=== PATIENT | female | born 1990 | race Caucasian/White ===

== ENCOUNTER 2020-03-30 08:58 | Emergency (ER) | payer OTHER ==
[2020-03-30] MEDS ORDERED: ACETAMINOPHEN 325 MG TAB PO ONE (09:45)
[2020-03-30 10:42] LABS: HCG, SERUM QUALITATIVE INDETERM. (NEGATIVE)
[2020-03-30] MEDS ORDERED: MORPHINE 4 MG/ML 1ML VIAL/SYRINGE (J2270) IV ONE (11:15)
--- NOTE | 2020-03-30 11:39 | REP ---
INDICATION: trauma. COMPARISON: None. TECHNIQUE: AP pelvis and two-view right hip FINDINGS: AP pelvis: The lower lumbar vertebral levels, sacrum, SI joints, iliac bones and hips appear symmetric and unremarkable. Pelvic ring intact. Symphysis pubis and pubic rami intact. Right hip hip joint space is preserved there is no fracture, avulsion or focal bone lesion. Acetabulum, pubic rami, symphysis pubis, iliac bone SI joint intact sacral ala and foramina unremarkable. No abnormal soft tissue calcification or visible soft tissue mass. IMPRESSION: 1. There is no visible or displaced fracture, avulsion or abnormal soft tissue calcification identified about the pelvis and right hip. <Electronically signed by Pierre Patel > 03/30/20 [id number]
[2020-03-30] MEDS ORDERED: CYCL-707 PO (12:12)
[2020-03-30 12:20] VITALS: BP 123/67
== END 2020-03-30 12:29 | disposition home or self-care (01) ==
LOC: EDBD 08:58 → M ED 08:58
DX: M62.830 Muscle spasm of back (principal); S73.101A Unspecified sprain of right hip, initial encounter; X58.XXXA Exposure to other specified factors, initial encounter; Y92.9 Unspecified place or not applicable; Y93.9 Activity, unspecified; Y99.9 Unspecified external cause status
CPT/HCPCS: 73502; 84702; 84703; 96374; 99284; J2270

== ENCOUNTER → 2020-05-29 | Outpatient (CLI) | payer OTHER ==
[~2020-05-29] MED LIST: CYCL-707 PO
[2020-05-29 14:35] LABS: HEMATOCRIT 40.2 % (36.0-47.0); HEMOGLOBIN 12.9 g/dl (12.0-15.5); MEAN CORPUSCULAR HEMOGLOBIN 29.1 pg (27.0-33.0); MEAN CORPUSCULAR HGB CONC 32.1 g/dl (32.0-36.5); MEAN CORPUSCULAR VOLUME 90.5 fl (80.0-96.0); PLATELET COUNT, AUTOMATED 331 10^3/uL (150-450); RED BLOOD COUNT 4.44 10^6/uL (4.00-5.40); WHITE BLOOD COUNT 11.9 10^3/uL (4.0-10.0)
[2020-05-29 15:12] LABS: ALT/SGPT 15 U/L (12-78); BILIRUBIN,TOTAL 0.3 MG/DL (0.2-1.0); CREATININE FOR GFR 0.54 MG/DL (0.55-1.30); GLOMERULAR FILTRATION RATE > 60.0 (>60); LDH LACTATE DEHYDROGENASE 148 U/L (84-246); URIC ACID 2.9 MG/DL (2.6-6.0)
[2020-05-29 15:16] LABS: CREATININE,RANDOM URINE 76.2 MG/DL; TOTAL PROTEIN,RANDOM URINE 14.3 MG/DL (0.0-12.0)
[2020-05-29 15:53] LABS: HEPATITIS C VIRUS ABY INDEX < 0.0 INDEX (<0.8); HIV 1&2 SCREEN CENTAUR NEGATIVE (NEGATIVE)
[2020-05-29 16:09] LABS: CHLAMYDIA DNA AMPLIFICATION NEGATIVE (NEGATIVE); GC DNA AMPLIFICATION NEGATIVE (NEGATIVE)
== END ==
LOC: M LAB 13:19
PROVIDERS: ATTEND Advanced Practice Midwife
DX: O34.211 Maternal care for low transverse scar from previous cesarean delivery (principal); Z3A.00 Weeks of gestation of pregnancy not specified

== ENCOUNTER → 2020-05-31 | Outpatient (REF) | payer OTHER | LOC: M PLALAB 11:25 | PROVIDERS: ATTEND Advanced Practice Midwife | DX: Z3A.12 12 weeks gestation of pregnancy (principal) | CPT/HCPCS: 36415; 86850; 86900; 86901; G0463 ==

== ENCOUNTER → 2020-07-14 | Outpatient (CLI) | payer OTHER ==
--- NOTE | 2020-07-14 14:41 | REP ---
INDICATION: ANATOMY. COMPARISON: None. TECHNIQUE: Transabdominal obstetric sonography. FINDINGS: Scanning through the gravid uterus demonstrates a viable single intrauterine gestation in variable lie. motion is observed and heart rate is recorded at 146 beats per minute. A posterior placenta is seen, grade 1, without evidence of placenta previa. Closed cervical length is measured at 3.1 cm transabdominally. No extrauterine abnormality is observed. Amniotic fluid is subjectively normal. No anomaly is seen. The following anatomic structures are identified and felt to be sonographically unremarkable: cranium, choroid plexus, cavum, cerebellum and posterior fossa, face and profile, lungs, four-chamber heart with left and right ventricular outflow tract views, diaphragm, left-sided stomach, abdominal wall cord insertion, three-vessel umbilical cord, kidneys and bladder, spine, and upper and lower extremities. Biometry chart: BPD 4.6 cm, 20 weeks 0 days Head circumference 16.8 cm, 19 weeks 3 days Abdominal circumference 13.7 cm, 19 weeks 1 day Femur length 3.0 cm, 19 weeks 1 day Humeral length 2.8 cm, 19 weeks 1 day HC AC ratio normal 1.22 Cephalic index normal 0.78 Estimated weight 280 g, 0 lb 9 oz, 75th percentile for 18 weeks 5 days IMPRESSION: Viable single intrauterine gestation at 19 weeks 3 days by today's composite sonographic criteria. ELLIE by today's sonography December 05, 2020. No complication identified. Expected gestational age estimate based on established ELLIE December 10, 2020 is 18 weeks 5 days. <Electronically signed by Salvador Meléndez > 07/14/20 0022
== END ==
LOC: M WHC 11:33
PROVIDERS: ATTEND Advanced Practice Midwife
DX: Z34.92 Encounter for supervision of normal pregnancy, unspecified, second trimester (principal); Z3A.19 19 weeks gestation of pregnancy

== ENCOUNTER → 2020-09-18 | Outpatient (REF) | payer OTHER | LOC: M PLALAB 08:58 | PROVIDERS: ATTEND Advanced Practice Midwife | DX: O34.219 Maternal care for unspecified type scar from previous cesarean delivery (principal) ==

== ENCOUNTER → 2020-10-05 | Outpatient (REF) | payer OTHER ==
[2020-10-05 18:01] LABS: HEMOGLOBIN A1c 5.2 %
== END ==
LOC: M PLALAB 14:55
PROVIDERS: ATTEND Advanced Practice Midwife
DX: O24.419 Gestational diabetes mellitus in pregnancy, unspecified control (principal)
CPT/HCPCS: 36415; 59025; 83036; G0463

== ENCOUNTER → 2020-10-23 | Outpatient (CLI) | payer OTHER ==
--- NOTE | 2020-10-23 11:37 | REP ---
INDICATION: O24.419 GESTATIONAL DIABETES,GROWTH COMPARISON: 07/14/2020 TECHNIQUE: Transabdominal obstetrical ultrasound with color Doppler evaluation. FINDINGS: Examination demonstrates a single live intrauterine in breech presentation. motion is identified by technologist. Placenta is noted posterior and grade 2 without evidence for placenta previa or abruption. Amniotic fluid volume is normal. Cervix measures 3.0 cm in length and appears closed.. Selected gestational age: 33 weeks 1 day with ELLIE 12/10/2020. Gestational age by current measurements 34 weeks 0 days with ELLIE 12/04/2020. FHR equals 140 beats per minute. BPD: 8.5 cm at 34 weeks 1 day HC: 31.2 cm at 34 weeks 6 days AC: 29.6 cm at 33 weeks 4 days FL: 6.5 cm at 33 weeks 4 days HL: 5.8 cm at 33 weeks 5 days HC/AC: 1.05 Estimated weight 2272 grams (61stpercentile). KEO: 13.5 cm Umbilical artery SD ratio: 2.56 (1.78-3.76) IMPRESSION: Single live intrauterine in breech presentation demonstrating appropriate interval growth. <Electronically signed by Jim Paul > 10/23/20 [id number]
== END ==
LOC: M WHC 10:04
PROVIDERS: ATTEND Advanced Practice Midwife
DX: O24.419 Gestational diabetes mellitus in pregnancy, unspecified control (principal); Z3A.33 33 weeks gestation of pregnancy; O32.1XX0 Maternal care for breech presentation, not applicable or unspecified

== ENCOUNTER 2020-10-26 01:01 | Outpatient (CLI) | payer OTHER ==
[~2020-10-26] VITALS: Ht 152.4 cm; Wt 92.0 kg
[2020-10-26 01:26] VITALS: BP 100/58
[2020-10-26] MEDS ORDERED: PRENTAB9 PO (01:49)
[2020-10-26] MEDS ORDERED: ASPI81CH33 PO (01:50)
[2020-10-26 02:40] LABS: APPEARANCE, URINE HAZY (CLEAR); BACTERIA, URINE AUTO 1+ (NEGATIVE); BILIRUBIN, URINE AUTO NEGATIVE (NEGATIVE); BLOOD, URINE BLOOD NEGATIVE (NEGATIVE); COLOR, URINE YELLOW (YELLOW); GLUCOSE, URINE (UA) AUTO 3+ mg/dL (NEGATIVE); KETONE, URINE AUTO TRACE mg/dL (NEGATIVE); LEUKOCYTE ESTERASE, URINE AUTO TRACE (NEGATIVE); MUCUS, URINE MODERATE (NEGATIVE); NITRITE, URINE AUTO NEGATIVE (NEGATIVE); PROTEIN, URINE AUTO 1+ mg/dL (NEGATIVE); RBC, URINE AUTO 1 /HPF (0-3); SPECIFIC GRAVITY URINE AUTO 1.022 (1.002-1.035); SQUAMOUS EPITHELIAL CELL UR AU 3 /HPF (0-6); WBC, URINE AUTO 4 /HPF (0-3)
[2020-10-26 02:49] LABS: HEMATOCRIT 33.4 % (36.0-47.0); HEMOGLOBIN 10.4 g/dl (12.0-15.5); MEAN CORPUSCULAR HEMOGLOBIN 24.8 pg (27.0-33.0); MEAN CORPUSCULAR HGB CONC 31.1 g/dl (32.0-36.5); MEAN CORPUSCULAR VOLUME 79.7 fl (80.0-96.0); PLATELET COUNT, AUTOMATED 412 10^3/uL (150-450); RED BLOOD COUNT 4.19 10^6/uL (4.00-5.40); WHITE BLOOD COUNT 11.8 10^3/uL (4.0-10.0)
[2020-10-26 03:14] LABS: ALBUMIN 2.6 GM/DL (3.2-5.2); ALT/SGPT 13 U/L (12-78); BILIRUBIN,TOTAL 0.3 MG/DL (0.2-1.0); BLOOD UREA NITROGEN 8 MG/DL (7-18); CALCIUM LEVEL 8.4 MG/DL (8.5-10.1); CARBON DIOXIDE LEVEL 20 MEQ/L (21-32); CHLORIDE LEVEL 107 MEQ/L (98-107); CREATININE FOR GFR 0.41 MG/DL (0.55-1.30); GLOMERULAR FILTRATION RATE > 60.0 (>60); GLUCOSE, FASTING 108 MG/DL (70-100); POTASSIUM SERUM 3.9 MEQ/L (3.5-5.1); SODIUM LEVEL 138 MEQ/L (136-145); TOTAL PROTEIN 6.5 GM/DL (6.4-8.2)
--- NOTE | 2020-10-26 07:23 | IPN ---
PROGRESS NOTE DATE: 10/26/2020 SUBJECTIVE: Zina is a 30-year-old , para 1-2-0-3, at 33 and 4/7 weeks gestation with estimated date of confinement (EDC) of 12/10/2020 based on first trimester ultrasound. She presents to labor and delivery to day with report of feeling dizzy and headache with a fingerstick glucose at home around midnight of 406. She denies contractions, vaginal bleeding and leakage of fluid. The fetus has been active. [facility] and [facility] care in the first trimester. course complicated by A2 gestational diabetes, prior section and a history of preeclampsia and prior pregnancies. OBSTETRIC HISTORY: 04/2011, 35 weeks and 3 days, 4 pound male, vaginal delivery following an induction for preeclampsia. December 2017, 37 weeks, 7 pounds, 8 ounce male following an emergency section due to non-reassuring heart rate. October 2018, 35 week gestation, twin gestation, section, male-male with demise of baby A at 28 weeks of unknown reasons. OBSTETRIC LABORATORY: O positive, antibody screen negative. Syphilis nonreactive. Gonorrhea and chlamydia negative. Hepatitis B surface antigen negative. Hepatitis C antibody nonreactive. HIV negative and rubella immune. She was unable to tolerate the one hour glucose screening, so fingerstick testing was employed and she was noted to have severely elevated glucose values, both fasting and postprandial. So diagnosis of gestational diabetes was made. She did have attempt management with diet and metformin and failed severely. PAST MEDICAL HISTORY: 1. Preeclampsia. 2. Gestational diabetes. SURGERIES: section times 2. FAMILY HISTORY: Hypertension. SOCIAL HISTORY: The patient is , stay at home mother. She is nonsmoker. Denies alcohol and drug use. Denies history of sexually transmitted infections and denies history of abuse, physical, sexual and emotional. ALLERGIES: No known drug allergies. CURRENT MEDICATIONS: Includes vitamins, aspirin 81 mg daily, every a.m. 38 units of NPH and 20 units of regular. Every p.m. 16 units of NPH and 16 units of regular. OBJECTIVE: Temperature 97.8, pulse 118, respirations 18, blood pressure is 100/58. She is alert and oriented x3. She does not appear uncomfortable. heart rate is 135 and moderate variability. Positive accelerations, negative decelerations. There is no pattern of contractions. Vaginal examination is deferred. Skin is warm, pink and dry. Her urinalysis demonstrates a specific gravity of 1.022, 3+ glucose and trace ketones. Her comprehensive metabolic panel (CMP) with a glucose of 108. Fingerstick blood sugar at bedside was 133 upon arrival. Her BUN is 8. Glomerular filtration rate (GFR) I greater than 60. Potassium is 3.9. Liver enzymes are normal. Complete blood count (CBC) with a hemoglobin of 10.4, hematocrit 33.4 and platelets of 412. ASSESSMENT: Intrauterine at 33 and 47 weeks. heart category 1. A2 gestational diabetes, stable at this time. PLAN: Discharge the patient to home. We did have a long discussion regarding dietary intake and management of her gestational diabetes. Options for dietary choices were reviewed with the patient in depth. I did review signs and symptoms of labor, movement counts and danger signs. I reviewed access to care. The patient has had all of her questions answered and is agreeable for discharge home.
== END 2020-10-26 03:24 | disposition home or self-care (01) ==
LOC: M LDO 01:01
PROVIDERS: ATTEND Advanced Practice Midwife
DX: O24.414 Gestational diabetes mellitus in pregnancy, insulin controlled (principal); Z3A.33 33 weeks gestation of pregnancy; O34.211 Maternal care for low transverse scar from previous cesarean delivery; Z87.59 Personal history of other complications of pregnancy, childbirth and the puerperium
CPT/HCPCS: 36415; 59025; 80053; 81001; 85027; 87086; G0378; G0463

== ENCOUNTER → 2020-11-07 | Outpatient (REF) | payer OTHER ==
[~2020-11-07] MED LIST changes: +ASPI81CH33 PO; +PRENTAB9 PO
[2020-11-07 15:33] LABS: HEMATOCRIT 35.8 % (36.0-47.0); HEMOGLOBIN 11.2 g/dl (12.0-15.5); MEAN CORPUSCULAR HEMOGLOBIN 24.8 pg (27.0-33.0); MEAN CORPUSCULAR HGB CONC 31.3 g/dl (32.0-36.5); MEAN CORPUSCULAR VOLUME 79.2 fl (80.0-96.0); PLATELET COUNT, AUTOMATED 399 10^3/uL (150-450); RED BLOOD COUNT 4.52 10^6/uL (4.00-5.40); WHITE BLOOD COUNT 9.7 10^3/uL (4.0-10.0)
[2020-11-07 16:01] LABS: TOTAL PROTEIN,RANDOM URINE 27.4 MG/DL (0.0-12.0)
[2020-11-07 16:03] LABS: ALT/SGPT 19 U/L (12-78); BILIRUBIN,TOTAL 0.4 MG/DL (0.2-1.0); CREATININE FOR GFR 0.47 MG/DL (0.55-1.30); GLOMERULAR FILTRATION RATE > 60.0 (>60); LDH LACTATE DEHYDROGENASE 164 U/L (84-246); URIC ACID 3.4 MG/DL (2.6-6.0)
== END ==
LOC: M PLALAB 13:24
PROVIDERS: ATTEND Specialist
DX: Z34.83 Encounter for supervision of other normal pregnancy, third trimester (principal)

== ENCOUNTER → 2020-11-14 | Outpatient (REF) | payer OTHER | LOC: M SFHCWAGY 09:56 | PROVIDERS: ATTEND Specialist | DX: O24.419 Gestational diabetes mellitus in pregnancy, unspecified control (principal) ==

== ENCOUNTER → 2020-11-15 | Outpatient (CLI) | payer OTHER ==
--- NOTE | 2020-11-15 10:24 | REP ---
INDICATION: GESTATIONAL DIABETES,GROWTH COMPARISON: 10/23/2020 TECHNIQUE: Transabdominal obstetrical ultrasound with color Doppler evaluation. FINDINGS: Examination demonstrates a single live intrauterine in breech presentation. motion is identified by technologist. Placenta is noted posterior and grade 3 without evidence for placenta previa or abruption. Amniotic fluid volume is normal. Cervix appears closed. Selected gestational age: 36 weeks 3 days with ELLIE 12/10/2020. Gestational age by current measurements 36 weeks 3 days with ELLIE 12/10/2020. FHR equals 149 beats per minute. BPD: 8.9 cm at 35 weeks 6 days HC: 32.3 cm at 36 weeks 3 days AC: 32.8 cm at 36 weeks 5 days FL: 7.1 cm at 36 weeks 4 days HL: 6.3 cm at 36 weeks 2 days HC/AC: 0.98 Estimated weight 2966 grams (56thpercentile). KEO: 8.9 cm (7.6-24.7) Umbilical artery SD ratio: 3.50 (1.62-3.48) IMPRESSION: Single live advanced gestation in breech presentation demonstrating appropriate interval growth. Amniotic fluid volume is lower limits normal. <Electronically signed by Jim Paul > 11/15/20 1021
== END ==
LOC: M WHC 08:00
PROVIDERS: ATTEND Advanced Practice Midwife
DX: O24.419 Gestational diabetes mellitus in pregnancy, unspecified control (principal); Z3A.36 36 weeks gestation of pregnancy; O32.1XX0 Maternal care for breech presentation, not applicable or unspecified

== ENCOUNTER → 2020-11-22 | Outpatient (CLI) | payer OTHER ==
[~2020-11-22] MED LIST changes: +IBUP80TA PO; +NOVOINJ12 SQ; +NOVOINJ13 SQ; +OXYC1TAB23 PO
== END ==
LOC: M LABSMTC 12:06
PROVIDERS: ATTEND Anesthesiology
DX: Z01.812 Encounter for preprocedural laboratory examination (principal); Z20.828 Contact with and (suspected) exposure to other viral communicable diseases
CPT/HCPCS: G0463; U0003

== ENCOUNTER 2020-11-23 04:35 | Inpatient (IN) | payer OTHER ==
[2020-11-23] VITALS (11 sets, daily range): BP systolic 106–138; BP diastolic 65–92
[~2020-11-23] VITALS: Ht 157.5 cm; Wt 93.9 kg
[~2020-11-23 04:35] MED LIST changes: -IBUP80TA PO; -OXYC1TAB23 PO
[2020-11-23 05:15] LABS: HEMATOCRIT 35.7 % (36.0-47.0); MEAN CORPUSCULAR HEMOGLOBIN 23.7 pg (27.0-33.0); MEAN CORPUSCULAR HGB CONC 30.8 g/dl (32.0-36.5); MEAN CORPUSCULAR VOLUME 76.9 fl (80.0-96.0); PLATELET COUNT, AUTOMATED 417 10^3/uL (150-450); RED BLOOD COUNT 4.64 10^6/uL (4.00-5.40); WHITE BLOOD COUNT 10.7 10^3/uL (4.0-10.0)
[2020-11-23] MEDS ORDERED: AZITHROMYCIN INJ 500 MG, VIAL MATE ADAPTER 1 EACH in NS 250 ML IV ONE (05:20)
[2020-11-23] MEDS ORDERED: BICITRA 30ML SOLN UDC PO ONE (05:20)
[2020-11-23] MEDS ORDERED: METHYLERGONOVINE MALEATE 0.2 MG/ML VIAL (J2210) IM PRN (05:20)
[2020-11-23] MEDS ORDERED: LR 1,000 ML IV SCH ×2 (05:20→07:45)
[2020-11-23] MEDS ORDERED: OXYTOCIN DRIP 30 UNITS in IV 1 EA IV PRN (05:20)
[2020-11-23] MEDS ORDERED: ceFAZolin SOD 2 GM in IV 1 EA IV ONE (05:20)
[2020-11-23] MEDS ORDERED: LACTATED RINGER'S 1000 ML IV STA (05:20)
[2020-11-23] MEDS ORDERED: ceFAZolin 2 GM/D5W 50 ML IV BAG (J0690 PER 500MG) As Ordered ONE (05:48)
[2020-11-23] MEDS ORDERED: AZITHROMYCIN INJ 500MG VIAL (J0456 PER 500MG) As Ordered ONE (05:48)
[2020-11-23] MEDS ORDERED: BICITRA 30ML SOLN UDC As Ordered ONE (05:48)
[2020-11-23] MEDS ORDERED: OXYTOCIN 30 UNITS IN 0.9% NaCl 500ML IV BAG (J2590) As Ordered ONE ×2 (06:03→07:56)
[2020-11-23] MEDS ORDERED: PHENYLephrine 500MCG 5ML (100MCG/ML) SYRINGE As Ordered ONE (06:03)
[2020-11-23] MEDS ORDERED: MORPHINE PRES-FREE INJ 10 MG/10 ML VIAL (J2274) As Ordered ONE (06:03)
[2020-11-23] MEDS ORDERED: ePHEDrine SULFATE 25 MG/5 ML(5MG/ML) SYRINGE As Ordered ONE (06:03)
[2020-11-23] MEDS ORDERED: diphenhydrAMINE 50MG/ML VIAL (J1200) IV PRN (06:24)
[2020-11-23] MEDS ORDERED: NALBUPHINE HCL 10 MG/ML AMP (J2300) IV PRN (06:24)
[2020-11-23] MEDS ORDERED: METOCLOPRAMIDE INJ 10MG/2ML VIAL (J2765 PER 1) IV PRN ×2 (06:24→07:45)
[2020-11-23] MEDS ORDERED: NALOXONE INJ 0.4MG/1ML VIAL (J2310 PER 1MG) IV PRN ×2 (06:24)
[2020-11-23] MEDS ORDERED: ONDANSETRON 4MG/2ML VIAL IV PRN ×2 (06:24→07:45)
[2020-11-23] MEDS ORDERED: ONDANSETRON 4MG/2ML VIAL As Ordered ONE (06:26)
[2020-11-23] MEDS ORDERED: fentaNYL 100 MCG/2 ML INJECTION (J3010) As Ordered ONE (06:51)
[2020-11-23] MEDS ORDERED: KETOROLAC 60MG 2ML VIAL As Ordered ONE (06:52)
[2020-11-23] MEDS ORDERED: KETAMINE HCL 200 MG/20 ML VIAL As Ordered ONE (06:54)
[2020-11-23] MEDS ORDERED: MIDAZOLAM INJ 2MG/2ML VIAL (J2250 PER 1MG) As Ordered ONE (06:54)
[2020-11-23] MEDS ORDERED: METOCLOPRAMIDE INJ 10MG/2ML VIAL (J2765 PER 1) As Ordered ONE (07:22)
[2020-11-23] MEDS ORDERED: ONDANSETRON 4 MG TAB PO PRN (07:40)
[2020-11-23] MEDS ORDERED: OXYTOCIN DRIP 30 UNITS in IV 1 EA IV SCH (07:40)
[2020-11-23] MEDS ORDERED: PERCOCET 5MG/325MG TAB PO PRN ×3 (07:40→07:45)
[2020-11-23] MEDS ORDERED: MEASLES,MUMPS,RUBELLA VACCINE INJ (MMR-II) (90707) SC SCH (07:40)
[2020-11-23] MEDS: LR 1,000 ML IV SCH ×2 (07:40→12:21)
[2020-11-23] MEDS ORDERED: SIMETHICONE 80MG CHEW TAB PO PRN (07:40)
[2020-11-23] MEDS ORDERED: RHOGAM 300 MCG (1500 IU) INJ (J2790) IM SCH (07:40)
[2020-11-23] MEDS ORDERED: fentaNYL 100 MCG/2 ML INJECTION (J3010) IV PRN (07:45)
--- NOTE | 2020-11-23 07:45 | ROOPDOC ---
[facility] Report Of Operation Report of Operation DATE OF PROCEDURE: 11/23/20 Report of operation Preoperative diagnosis: 37 4/7 weeks, labor, breech, type II diabetes, prior x 2, SROM Postoperative diagnosis: same Procedure: Repeat low transverse section and bilateral tubal ligation. Surgeon: Cristopher Ochoa M.D. Asst.: Sho Hyatt CNM EBL: 600 ml. Urine output: 100 mL's. Findings: 7 lbs. 7 oz. male infant, 's 8 and 9, large uterine septum, normal fallopian tubes, ovaries. Operative summary: Patient taken to the operating room where spinal anesthesia was induced. She was prepped and draped in a sterile fashion in the supine position. A Hurtado catheter was placed. A Pfannenstiel skin incision was made with scalpel. Fascia was incised and extended bilaterally. The peritoneal cavity was entered. A Mobius retractor was placed. A bladder flap was created. A curvilinear incision was made in lower uterine segment until Clear fluid was noted. The incision was extended manually. The infant was delivered from the vertex position without difficulty. Cord was doubly clamped and cut. The was handed to awaiting nurses. The placenta was expressed. Uterus was closed with O-Vicryl in a running locked fashion. A second imbricating layer of Vicryl was placed. Attention was turned to the fallopian tubes. A Corinne clamp was used to grasp the fallopian tubes at the midportion.. A window was created in the broad ligament free tie of 2-0 chromic was placed around the segment of tube on either side of the clamp. A Segment of tube was excised bilaterally and sent to pathology. Peritoneum was closed with 2-0 Vicryl a running fashion. Fascia was closed with 0 Vicryl in running fashion. Skin was closed 4-0 Monocryl subcuticular sutures. Sponge, instrument and needle counts were correct. Renetta Hyatt CNM, assisted with all aspects of the procedure. She helped each layer of the incision and deliver the fetus. CRISTOPHER OCHOA MD Nov 23, 2020 07:45
[2020-11-23] MEDS ORDERED: KETOROLAC 30 MG/ML 1ML VIAL As Ordered ONE (08:03)
[2020-11-23] MEDS: KETOROLAC 30 MG/ML 1ML VIAL IV SCH ×3 (08:05→20:34)
[2020-11-23] MEDS: PRENATAL VITAMINS CHEWABLE TABLET PO SCH (08:57)
--- NOTE | 2020-11-23 09:56 | HPE ---
HISTORY AND PHYSICAL DATE OF ADMISSION: 11/23/2020 HISTORY OF PRESENT ILLNESS: Zina is a 30-year-old 4 para 1-2-0-3 at 37 and 4/7th weeks gestation, EDC of 12/10/2020 based on first trimester ultrasound. She presents to Labor and Delivery today with report of spontaneous rupture of membranes at approximately 0400. She reports continued leakage of fluid and regular contractions. She does deny vaginal bleeding. The fetus has been active. [facility] in the first trimester. He course was complicated by a history of preeclampsia. She has been taking aspirin 81 mg daily. Prior section x2 and gestational diabetes not well managed with insulin. Also, a report of borderline oligohydramnios with an KEO of 8.9 cm on November 15, 2020. OBSTETRIC HISTORY: 05/05/2011: 35 weeks and 3 days, 4 pound male, vaginal delivery following an induction for preeclampsia; 01/01/2018: 37 weeks, emergency section, 7 pound, 8 ounce male following bradycardia; 10/2018: 35 weeks, 5 pound live male with baby A demise at 28 weeks, she underwent a section. OBSTETRIC LABS: O positive, antibody screen negative, syphilis negative, gonorrhea and chlamydia negative, hepatitis B surface antigen negative, hepatitis C antibody nonreactive, HIV nonreactive. She did undergo the 1 hour glucose tolerance test and did not tolerate the Glucola and fingersticks were then ordered. She has been not well-controlled with insulin. She is rubella immune. GBS is negative. Urine culture with no growth. PAST MEDICAL HISTORY: Gestational diabetes, preeclampsia. PAST SURGICAL HISTORY: section x2. FAMILY HISTORY: Hypertension. SOCIAL HISTORY: The patient is . Her is at bedside. She is a nonsmoker. Denies alcohol and drug use. No history of any sexually transmitted infections and no history of abuse, physical, sexual or emotional. ALLERGIES: No known drug allergies. CURRENT MEDICATIONS: 1. Insulin in the a.m., 38 NPH with 20 of regular, in the p.m. 16 NPH with 16 of regular. Most recent ultrasound on November 15, 2020 EFW 2966 grams, 56 percentile, 8.9 cm fluid in breech presentation. OBJECTIVE: Temperature 98.7, pulse 115, respirations 18, blood pressure is 128/84, heart rate is 150 with moderate variability, positive accelerations, negative decelerations, contractions are every 5 to 6 minutes. She has grossly ruptured clear fluid. Sterile vaginal exam: 1 cm dilated, 50% effaced, -3 station, breech presentation confirmed on 11/22/2020 in the office. ASSESSMENT: Intrauterine at 37 and 4/7th weeks, heart rate Category 1, insulin controlled diabetic, breech presentation, spontaneous rupture of membranes in active labor. PLAN: Admit patient to Labor and Delivery, routine laboratories, IV fluid bolus, surgical antibiotic prophylaxis. Patient has been consented for surgery. Risks, benefits and alternatives have been reviewed. She has been verbally consented for blood products as well. Anesthesia made aware of patient's presentation as well as Dr. Liang en route to perform repeat section with bilateral tubal ligation as patient has requested.
[2020-11-23] MEDS: DOCUSATE SODIUM 100MG CAPSULE PO SCH (22:52)
[2020-11-24 02:00] VITALS: BP 102/50
[2020-11-24] MEDS: KETOROLAC 30 MG/ML 1ML VIAL IV SCH (02:11)
[2020-11-24] MEDS ORDERED: OXYC1TAB23 PO (04:28)
[2020-11-24] MEDS ORDERED: IBUP80TA PO (04:29)
[2020-11-24 05:52] LABS: HEMATOCRIT 28.7 % (36.0-47.0); HEMOGLOBIN 8.6 g/dl (12.0-15.5); MEAN CORPUSCULAR HEMOGLOBIN 23.4 pg (27.0-33.0); PLATELET COUNT, AUTOMATED 338 10^3/uL (150-450); RED BLOOD COUNT 3.68 10^6/uL (4.00-5.40); WHITE BLOOD COUNT 11.7 10^3/uL (4.0-10.0)
[2020-11-24 06:00] VITALS: BP 109/71
--- NOTE | 2020-11-24 07:19 | IPNPDOC ---
Text Note Date of Service The patient was seen on 11/24/20. NOTE POst note S: No complaints. pain adequately managed O: AVSS NAD Abd: NT, dressing c/d/i ext: NT A/P post op day #1 c/s routine post-op care VS,Fishbone, I+O VS, Fishbone, I+O Laboratory Tests 11/24/20 05:23 Vital Signs Date Time Temp Pulse Resp B/P (MAP) Pulse Ox O2 Delivery O2 Flow Rate FiO2 11/24/20 06:00 96.6 76 18 109/71 (84) 99 Room Air I&O- Last 24 Hours up to 6 AM 11/24/20 06:00 Intake Total 1400 ml Output Total 2375 ml Balance -975 ml CRISTOPHER OCHOA MD Nov 24, 2020 07:19
[2020-11-24] MEDS: IBUPROFEN 800 MG TAB PO SCH ×2 (09:08→17:44)
[2020-11-24] MEDS: DOCUSATE SODIUM 100MG CAPSULE PO SCH ×2 (09:08→21:28)
[2020-11-24] MEDS: PRENATAL VITAMINS CHEWABLE TABLET PO SCH (09:08)
[2020-11-24 09:55] VITALS: BP 111/59
[2020-11-24 14:00] VITALS: BP 131/85
[2020-11-24 17:59] VITALS: BP 132/85
[2020-11-24 21:58] VITALS: BP 133/66
[2020-11-25] MEDS: IBUPROFEN 800 MG TAB PO SCH ×2 (01:41→10:00)
[2020-11-25 02:08] VITALS: BP 134/93
[2020-11-25 06:14] VITALS: BP 120/70
[2020-11-25] MEDS: PRENATAL VITAMINS CHEWABLE TABLET PO SCH (08:59)
[2020-11-25] MEDS: DOCUSATE SODIUM 100MG CAPSULE PO SCH (08:59)
--- NOTE | 2020-11-25 10:24 | DS.PDOC ---
Discharge Summary General Date of Admission Nov 23, 2020 at 05:03 Date of Discharge 11/25/20 Attending Physician: YADIEL JEAN MD. Discharge Summary PROCEDURES PERFORMED DURING STAY: Repeat section with tubal ligation 2. Spinal anesthesia. ADMITTING DIAGNOSES: 1. Spontaneous rupture of membranes. 2. History of 2 prior sections. 3. Satisfied parity 1 undesired fertility. DISCHARGE DIAGNOSES: 1. Save as above. COMPLICATIONS/CHIEF COMPLAINT: LABOR. HISTORY OF PRESENT ILLNESS: Mrs. Schofield presented for scheduled section with tubal ligation. She underwent a repeat section, productive of live born male a Apgars were 8 and 9 weight was 7 lbs. 7 oz. Estimated blood loss 600ml. Patient did well postoperatively by postoperative day #2 had met all discharge criteria and was discharged home in stable condition. DISCHARGE MEDICATIONS: Please see below. ALLERGIES: Please see below. PHYSICAL EXAMINATION ON DISCHARGE: VITAL SIGNS: Please see below. GENERAL: No distress HEENT: WNL ABDOMINAL EXAMINATION: Fundus firm. Dressing intact EXTREMITIES: Equal strength and motion SKIN: Intact NEUROLOGICAL EXAMINATION: Grossly intact PSYCHIATRIC EXAMINATION: Appropriate LABORATORY DATA: Please see below. PROGNOSIS: Good ACTIVITY: As tolerated. Pelvic rest. DIET: As tolerated DISCHARGE PLAN: Discharge today. Remove dressing day 5 DISPOSITION: Home DISCHARGE INSTRUCTIONS: 1. Pelvic rest. Continue vitamins. Medications as ordered. Call with fever, nausea, vomiting, chills, foul lochia, wound exudate or evidence infection. DISCHARGE CONDITION: Stable Vital Signs/I&Os Vital Signs Date Time Temp Pulse Resp B/P (MAP) Pulse Ox O2 Delivery O2 Flow Rate FiO2 11/25/20 06:14 97.8 67 18 120/70 (87) 99 11/24/20 14:00 Room Air Discharge Medications Scheduled Ibuprofen (Ibuprofen) 800 Mg Tablet, 800 MG PO Q8H Insulin NPH Human Isophane (Novolin N) 100 Unit/1 Ml Vial, 34 UNITS SQ QAM, (Reported) 13 units in evening Insulin Regular, Human (Novolin R) 100 Unit/1 Ml Vial, SQ TID, (Reported) pt unsure of dose No.137/Iron/Folic Acd ( Vitamin Tablet) 1 Each Tablet, 1 TAB PO DAILY, (Reported) Scheduled PRN Oxycodone HCl/Acetaminophen (Oxycodone-Acetaminophen 5-325) 1 Each Tablet, 1 TAB PO TIDP PRN for pain Allergies Coded Allergies: No Known Allergies (Unverified , 11/21/20) YADIEL JEAN MD. Nov 25, 2020 10:24
== END 2020-11-25 12:35 | disposition home or self-care (01) | DRG 785 ==
LOC: M LDO 04:35 → M LDI 05:03 → M OBS 08:30
PROVIDERS: ADMIT Advanced Practice Midwife; ATTEND Advanced Practice Midwife
PROC: 0UB70ZZ Excision of Bilateral Fallopian Tubes, Open Approach (ICD-10-PCS; 2020-11-23)
PROC: 10D00Z1 Extraction of Products of Conception, Low, Open Approach (ICD-10-PCS; principal; 2020-11-23 06:30)
DX: O75.82 Onset (spontaneous) of labor after 37 completed weeks of gestation but before 39 completed weeks gestation, with delivery by (planned) cesarean section (principal); O34.211 Maternal care for low transverse scar from previous cesarean delivery; Z3A.37 37 weeks gestation of pregnancy; Z37.0 Single live birth; O24.424 Gestational diabetes mellitus in childbirth, insulin controlled; O64.1XX0 Obstructed labor due to breech presentation, not applicable or unspecified; Z30.2 Encounter for sterilization